=== PATIENT | male | born 1995 | race African-American/Black ===

== ENCOUNTER 2020-07-14 11:07 | Emergency (ER) | payer OTHER ==
[~2020-07-14] VITALS: Ht 188 cm; Wt 95.4 kg
[2020-07-14 11:54] VITALS: BP 108/42
[2020-07-14] MEDS ORDERED: IBUP800T19 PO (12:01)
== END 2020-07-14 12:12 | disposition home or self-care (01) ==
LOC: EEVIPCON 11:07 → ER 11:07
DX: M25.571 Pain in right ankle and joints of right foot (principal)
CPT/HCPCS: 73610; 99283